=== PATIENT | female | born 1955 | race African-American/Black ===

== ENCOUNTER 2017-12-06 20:21 | Emergency (ER) | payer BC, OTHER ==
[~2017-12-06] VITALS: Ht 162.6 cm; Wt 73.5 kg
--- NOTE | ~2017-12-06 | EKG ---
[address] [address] ELECTROCARDIOGRAM REPORT Name: PAWEL ZAVALA Room #: DEP Mynor#: [id number] Admission: 12/06/17 Attend Phys: Discharge: 12/06/17 Date of : 59 Report #: [id number] THIS REPORT FOR: //name// [facility] ED Test Date: 2017-12-06 Test Time: 20:30:30 Pat Name: PAWEL ZAVALA Department: Room: Gender: F Global Engineering Manager: JEANNETTE : 1955 Requested By: Aviva Oropeza Order Number: [id number] MD: Taj Wade Measurements Intervals [place] Rate: 54 P: 39 [place]: 171 QRS: 11 QRSD: 81 T: 30 QT: 411 QTc: 390 Interpretive Statements Sinus rhythm No previous ECG available for comparison Electronically Signed On 12-07-2017 8:09:06 CDT by Taj Wade [email or web address] <ELECTRONICALLY SIGNED> By: Taj Wade MD 12/07/17 0809 2030 [facility] [place] Taj Wade MD /MICHAELA
[2017-12-06 20:53] LABS: ABSOLUTE NEUTROPHILS 2.7 thou/uL (1.4-8.2); BASOPHILS 0.6 % (0.0-2.0); EOSINOPHILS 4.2 % (0.0-3.0); HEMATOCRIT 41.1 % (37.0-47.0); HEMOGLOBIN 13.9 gm/dL (12.0-15.0); LYMPHOCYTES 45.8 % (24.0-44.0); MCH 31.3 pg (26.0-34.0); MCHC 33.8 g/dL (28.0-37.0); MCV 92.7 fL (80.0-100.0); MONOCYTES 8.5 % (1.0-8.0); PLATELET COUNT 221 thou/uL (150-400); POLYS 40.9 % (36.0-66.0); RBC 4.44 mil/uL (4.20-5.00); RDW 13.5 % (10.5-14.5); WBC 6.5 thou/uL (4.0-11.0)
[2017-12-06 20:59] LABS: ANION GAP 7 mmol/L (7-16); BUN 17 mg/dL (7-18); CALCIUM 10.2 mg/dL (8.5-10.1); CHLORIDE 103 mmol/L (98-107); CO2 31 mmol/L (21-32); CREATININE 0.9 mg/dL (0.6-1.0); GLUCOSE 91 mg/dL (74-106); POTASSIUM 3.5 mmol/L (3.5-5.1); SODIUM 141 mmol/L (136-145)
[2017-12-06 21:02] LABS: TROPONIN-I < 0.04 ng/mL (<0.06)
[2017-12-06 21:36] LABS: ALBUMIN 4.3 g/dL (3.4-5.0); DIRECT BILIRUBIN 0.1 mg/dL (<0.1-0.3); TOTAL BILIRUBIN 0.5 mg/dL (<0.1-1.0); TOTAL PROTEIN 7.7 g/dL (6.4-8.2)
[2017-12-06] MEDS ORDERED: PRILOSEC 20 MG20 MG PO (22:30)
[2017-12-06 22:50] VITALS: BP 130/82
== END 2017-12-06 22:50 | disposition home or self-care (01) ==
LOC: ER 20:21
PROVIDERS: Physician Assistant
DX: K30 Functional dyspepsia (principal); R07.9 Chest pain, unspecified